=== PATIENT | female | born 1990 | race Two or more races ===

== ENCOUNTER 2019-12-11 18:11 | Emergency (ER) | payer MEDICAID ==
[~2019-12-11] VITALS: Ht 162.6 cm; Wt 52.2 kg
[2019-12-11 19:27] LABS: APPEARANCE,URINE Clear (CLEAR); BILIRUBIN,URINE Negative (NEGATIVE); BLOOD, URINE Negative Ery/uL (NEGATIVE); COLOR,URINE Yellow (YELLOW); KETONES,URINE Negative (NEGATIVE); LEUKOCYTE ESTERASE ,URINE Negative (NEGATIVE); NITRITE, URINE Negative (NEGATIVE); PROTEIN,URINE Negative (NEGATIVE); UGLUCOSE Negative (NEGATIVE); UROBILINOGEN,URINE 0.2 EU/dL (0.2)
[2019-12-11 19:43] LABS: BASOPHILS # (AUTO) 0.1 /CMM (0.0-0.2); BASOPHILS % (AUTO) 0.5 % (0.0-2.0); EOSINOPHILS % (AUTO) 0.7 % (0.0-6.0); HEMATOCRIT 43 % (33-45); HEMOGLOBIN 13.9 g/dL (11.5-14.8); LYMPHOCYTES # (AUTO) 1.9 /CMM (0.8-4.8); LYMPHOCYTES % (AUTO) 18.9 % (20.0-44.0); MEAN CORPUSCULAR HGB CONC 33 g/dl (31.0-36.0); MEAN CORPUSCULAR VOLUME 81 fL (82-100); MONOCYTES # (AUTO) 0.8 /CMM (0.1-1.30); MONOCYTES % (AUTO) 8.3 % (2.0-12.0); NEUTROPHILS # (AUTO) 7.1 /CMM (1.8-8.9); NEUTROPHILS % (AUTO) 71.6 % (43.0-81.0); PLATELET COUNT (AUTO) 315 /CMM (150-450); RED BLOOD CELL COUNT(AUTO) 5.28 MIL/uL (4.0-5.2); WHITE BLOOD COUNT (AUTO) 9.9 K/uL (4.3-11.0)
[2019-12-11 19:52] LABS: CALCIUM, SERUM 9.6 mg/dL (8.5-10.1); CREATININE 0.7 mg/dL (0.6-1.3); POTASSIUM 3.6 mmol/L (3.5-5.1)
[2019-12-11] MEDS ORDERED: IBUPROFEN 600 MG TABLET PO ONE ×2 (20:00→20:06)
--- NOTE | 2019-12-11 20:39 | NUR ---
Ultrasound at bedside
--- NOTE | 2019-12-11 21:04 | NUR ---
PT CAME TO ER BED 4 C/O LOWER BACK PAIN. NO PAIN UPON URINATION. AAOX4. NO SOB. BREATHING EVENLY AND UNLABORED. CONNECTED TO MONITOR.
--- NOTE | 2019-12-11 21:34 | NUR ---
Patient discharged to home in stable condition. Written and verbal after care instructions given. Patient verbalizes understanding of instruction. Prescription given and explained to the patient.
[2019-12-11 21:35] VITALS: BP 123/77
== END 2019-12-11 21:36 | disposition home or self-care (01) ==
LOC: ER 18:15
DX: S39.012A Strain of muscle, fascia and tendon of lower back, initial encounter (principal); X58.XXXA Exposure to other specified factors, initial encounter; Y93.89 Activity, other specified; Y92.89 Other specified places as the place of occurrence of the external cause; Y99.8 Other external cause status
CPT/HCPCS: 36415; 76770-TC; 76856-TC; 80048-TC; 81000-TC; 84702-TC; 85025-TC; 85730-TC

== ENCOUNTER → 2021-08-25 | Emergency (ER) | payer MEDICAID ==
[~2021-08-25] VITALS: Ht 165.1 cm; Wt 52.2 kg
[~2021-08-25] MED LIST: CIPR7.5D9 RIGHT EAR
[2021-08-25 18:41] VITALS: BP 121/78
--- NOTE | 2021-08-25 18:45 | NUR ---
TO ER BED 3, C/O RT EAR PAIN WITH DIZZINESS FOR 2DAYS, AAOX4, BREATHING EVEN AND NON LABORED, AWAITING MD MOREL
--- NOTE | 2021-08-25 21:21 | NUR ---
Patient discharged to home in stable condition. RX ,Written and verbal after care instructions given. Patient verbalizes understanding of instruction.
== END | disposition home or self-care (01) ==
LOC: ER 20:57
DX: H60.91 Unspecified otitis externa, right ear (principal); H61.21 Impacted cerumen, right ear